=== PATIENT | male | born 1980 | race Caucasian/White ===

== ENCOUNTER 2017-01-30 00:21 | Emergency (ER) | payer SELFPAY ==
--- NOTE | 2017-01-30 01:28 | ER Document Report ---
ED General - General Chief Complaint: Psych Problem Stated Complaint: SUICIDAL IDEATION,WRIST LACERATION Time Seen by Provider: 01/30/17 00:43 Notes: Patient is a 36 year old male without past medical history, no formal psychiatric diagnoses in the past who presents with suicidal ideation with a plan to cut his wrist. Patient notes multiple stressors recently from work as well as his social life that prompted tonight. Per police he is also apparently a current missing person. Patient notes that he was seen by a psychiatrist several days ago and started on Lexapro and trazodone at that time but discontinued those medicines as he did not feel they were helping and were causing some side effects. Nothing improves or worsens his symptoms. He denies any acute medical complaints. He did self-inflicted several superficial lacerations to the wrists bilaterally. TRAVEL OUTSIDE OF THE [place] IN LAST 30 DAYS: No - Related Data Allergies/Adverse Reactions: diphenhydramine HCl [From Benadryl] Allergy (Severe, Verified 01/27/13 02:22) Past Medical History - General Information source: Patient - Social History Smoking Status: Never Smoker Frequency of alcohol use: None Drug Abuse: None Lives with: Alone Family History: Reviewed & Not Pertinent, Other - dvt--both father and materal uncle Patient has suicidal ideation: Yes Patient has homicidal ideation: No Renal/ Medical History: Denies: Hx Peritoneal Dialysis - Immunizations Hx Diphtheria, Pertussis, Tetanus Vaccination: Yes Review of Systems - Review of Systems Notes: Constitutional: Negative for fever. HENT: Negative for sore throat. Eyes: Negative for visual changes. Cardiovascular: Negative for chest pain. Respiratory: Negative for shortness of breath. Gastrointestinal: Negative for abdominal pain, vomiting or diarrhea. Genitourinary: Negative for dysuria. Musculoskeletal: Negative for back pain. Skin: Negative for rash. Neurological: Negative for headaches, weakness or numbness. 10 point ROS negative except as marked above and in HPI. Physical Exam - Vital signs Vitals: Temp Pulse Resp BP Pulse Ox 98.3 F 102 H 16 143/85 H 95 01/30/17 00:26 01/30/17 00:26 01/30/17 00:26 01/30/17 00:26 01/30/17 00:26 Interpretation: Hypertensive, Tachycardic Notes: PHYSICAL EXAMINATION: GENERAL: Flat affect, depressed mood. Tearful. HEAD: Atraumatic, normocephalic. EYES: Pupils equal round and reactive to light, extraocular movements intact, sclera anicteric, conjunctiva are normal. ENT: nares patent, oropharynx clear without exudates. Moist mucous membranes. NECK: Normal range of motion, supple without lymphadenopathy LUNGS: Breath sounds clear to auscultation bilaterally and equal. No wheezes rales or rhonchi. HEART: Regular rate and rhythm without murmurs ABDOMEN: Soft, nontender, normoactive bowel sounds. No guarding, no rebound. No masses appreciated. EXTREMITIES: Normal range of motion, no pitting or edema. No cyanosis. NEUROLOGICAL: No focal neurological deficits. Moves all extremities spontaneously and on command. PSYCH: Flat affect, depressed mood. Tearful. SKIN: Warm, Dry, normal turgor, no rashes or lesions noted. Course - Re-evaluation Re-evalutation: 01/30/17 01:25 Patient presents with suicidal ideation with a plan to slit his wrists to kill himself. Patient presents as extremely depressed, hopeless, repeatedly stating "I do not want to be here anymore". Patient has had significant struggles at work recently, has significant guilt regarding the of the pediatric patient, and also has social issues. Patient was recently started on Lexapro and trazodone which she has discontinued due to side effects. He has prior mental health history although he does not carry any formal diagnosis. I believe patient has an elevated risk for completion of suicide and therefore placed the patient under involuntary commitment. Medical screening exam shows very superficial lacerations to the bilateral wrists that do not warrant repair. Will obtain medical screening labs. Patient is otherwise medically cleared for evaluation by psychiatry. - Vital Signs Vital signs: Temp Pulse Resp BP Pulse Ox 98.3 F 102 H 16 143/85 H 95 01/30/17 00:26 01/30/17 00:26 01/30/17 00:26 01/30/17 00:26 01/30/17 00:26 - Laboratory Result Diagrams: 01/30/17 01:36 01/30/17 01:36 Laboratory results interpreted by me: 01/30/17 01/30/17 01:36 01:36 RBC 5.62 H Potassium 3.5 L Carbon Dioxide 20 L Salicylates < 1.0 L Acetaminophen < 10 L - EKG Interpretation by Me Additional EKG results interpreted by me: 01/30/17 05:10 Normal sinus rhythm. Heart rate 86. No ST elevations or depressions. QTC is 426. Discharge - Discharge Clinical Impression: Suicidal ideation Condition: Fair Disposition: PSYCH HOSP/UNIT
[2017-01-30 01:48] LABS: ABSOLUTE BASOPHILS # (AUTO) 0.1 10^3/uL (0.0-0.2); ABSOLUTE EOSINOPHILS # (AUTO) 0.1 10^3/uL (0.0-0.6); ABSOLUTE LYMPHOCYTES (AUTO) 3.1 10^3/uL (0.5-4.7); ABSOLUTE MONOCYTES (AUTO) 0.7 10^3/uL (0.1-1.4); ABSOLUTE NEUT (AUTO) 6.2 10^3/uL (1.7-8.2); BASOPHILS % (AUTO) 0.9 % (0-2); EOSINOPHILS % (AUTO) 1.1 % (0-6); HEMATOCRIT 50.7 % (37.9-51.0); HEMOGLOBIN 16.9 g/dL (13.5-17.0); LYMPHOCYTES % (AUTO) 30.3 % (13-45); MEAN CORPUSCULAR HEMOGLOBIN 30.1 pg (27.0-33.4); MEAN CORPUSCULAR HGB CONC 33.3 g/dL (32.0-36.0); MEAN CORPUSCULAR VOLUME 90 fl (80-97); MONOCYTES % (AUTO) 6.8 % (3-13); RED BLOOD COUNT 5.62 10^6/uL (4.35-5.55); RED CELL DISTRIBUTION WIDTH 12.8 % (11.5-14.0); SEGMENTED NEUTROPHILS % (AUTO) 60.9 % (42-78); WHITE BLOOD COUNT 10.1 10^3/uL (4.0-10.5)
[2017-01-30 02:00] LABS: ALANINE AMINOTRANSFERASE 61 U/L (21-72); ALBUMIN 4.8 g/dL (3.5-5.0); ALCOHOL 123 mg/dL (NONE DETECTED); ALKALINE PHOSPHATASE 74 U/L (38-126); ANION GAP 16 (5-19); ASPARTATE AMINO TRANSFERASE 29 U/L (17-59); BILIRUBIN,DIRECT 0.4 mg/dL (0.0-0.4); BILIRUBIN,TOTAL 1.1 mg/dL (0.2-1.3); BLOOD UREA NITROGEN 7 mg/dL (7-20); CALCIUM 9.7 mg/dL (8.4-10.2); CARBON DIOXIDE 20 mmol/L (22-30); CHLORIDE 107 mmol/L (98-107); CREATININE RESULT 0.83 mg/dL (0.52-1.25); GLUCOSE 107 mg/dL (75-110); POTASSIUM 3.5 mmol/L (3.6-5.0); SODIUM 143.3 mmol/L (137-145); TOTAL PROTEIN 7.8 g/dL (6.3-8.2)
[2017-01-30 02:19] LABS: APPEARANCE,URINE CLEAR; BILIRUBIN,URINE NEGATIVE (NEGATIVE); GLUCOSE, URINE NEGATIVE (NEGATIVE); KETONES,URINE NEGATIVE (NEGATIVE); LEUKOCYTE ESTERASE,URINE NEGATIVE (NEGATIVE); NITRITE,URINE NEGATIVE (NEGATIVE); PROTEIN,URINE NEGATIVE (NEGATIVE); URINE SPECIFIC GRAVITY 1.003; UROBILINOGEN,URINE NEGATIVE mg/dL (<2.0)
[2017-01-30 02:55] LABS: URINE BARBITURATES SCREEN NEGATIVE; URINE METHADONE SCREEN NEGATIVE; URINE OPIATES LOW NEGATIVE; URINE PHENCYCLIDINE SCREEN NEGATIVE
--- NOTE | 2017-01-30 09:21 | ER Document Report ---
Doctor's Note Notes: 01/30/17 09:20 I have evaluated this patient this am and has no c/o at this time. Feels all of their needs are being met and physical exam is normal. Awaiting dispositon per mental health. 01/30/17 14:50 Pt seen and evaluated by mental health. Patient says that he is not suicidal at this time. He was only expressing these thoughts because he was drunk last night. Patient set up with outpatient appointment at [facility]. Given strict return precautions and he understands.
--- NOTE | 2017-01-30 10:23 | EKG REPORT ---
SEVERITY:- NORMAL ECG - SINUS RHYTHM : Confirmed by: Lamonte Chand MD 30-Jan-2017 10:23:18
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
[2017-01-30 15:10] VITALS: BP 129/76
== END 2017-01-30 15:09 | disposition home or self-care (01) ==
LOC: ER 00:21
DX: S61.512A Laceration without foreign body of left wrist, initial encounter (principal); S61.511A Laceration without foreign body of right wrist, initial encounter; X78.9XXA Intentional self-harm by unspecified sharp object, initial encounter; F33.9 Major depressive disorder, recurrent, unspecified; T43.226A Underdosing of selective serotonin reuptake inhibitors, initial encounter; T43.216A Underdosing of selective serotonin and norepinephrine reuptake inhibitors, initial encounter; Z91.128 Patient's intentional underdosing of medication regimen for other reason; Z91.14 Patient's other noncompliance with medication regimen; F10.129 Alcohol abuse with intoxication, unspecified; R00.0 Tachycardia, unspecified; Z88.8 Allergy status to other drugs, medicaments and biological substances; Z81.1 Family history of alcohol abuse and dependence
CPT/HCPCS: 36415; 80053; 80307; 81001; 85025; 93005; 93010; 99284

== ENCOUNTER 2017-02-04 13:13 | Emergency (ER) | payer SELFPAY ==
[2017-02-04 13:17] VITALS: BP 131/83
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
== END 2017-02-04 13:38 | disposition home or self-care (01) ==
LOC: ER 13:13
DX: Z76.0 Encounter for issue of repeat prescription (principal); F33.9 Major depressive disorder, recurrent, unspecified; Z88.8 Allergy status to other drugs, medicaments and biological substances
CPT/HCPCS: 99281